=== PATIENT | male | born 1990 | race Caucasian/White ===

== ENCOUNTER 2016-12-29 01:37 | Emergency (ER) | payer OTHER, BC ==
[~2016-12-29] VITALS: Ht 167.6 cm; Wt 69.7 kg
[2016-12-29] MEDS ORDERED: KEFLEX500 MG PO (02:47)
[2016-12-29 03:40] VITALS: BP 116/77
== END 2016-12-29 03:41 | disposition home or self-care (01) ==
LOC: EME 01:37
PROC: 3E0T3BZ Introduction of Anesthetic Agent into Peripheral Nerves and Plexi, Percutaneous Approach (ICD-10-PCS; principal; 2016-12-29)
DX: S61.243A Puncture wound with foreign body of left middle finger without damage to nail, initial encounter (principal); W26.9XXA Contact with unspecified sharp object(s), initial encounter; Y99.0 Civilian activity done for income or pay
CPT/HCPCS: 73140; 99281; 99284; J0690